=== PATIENT | male | born 1960 | race Hispanic/Latino ===

== ENCOUNTER → 2018-12-26 | Day surgery (SDC) | payer OTHER ==
[~2018-12-26] MED LIST: FENTANYL CITRATE/PF 100MCG/2 ML INJ ONE; HYDROCHLOROTHIA25 MG PO; LISINOPRIL10 MG PO; MIDAZOLAM HCL 2 MG/2 ML VIAL ONE; PROPOFOL IV EMULSION 10 MG/ML 50 ML VIAL ONE
--- OUTSIDE RECORDS SUMMARY | 2018-12-26 06:35 | XMS REPORT ---
Author Author Admin, [facility] Address Unknown Phone Unavailable Allergies, Adverse Reactions, Alerts Allergy Name Reaction Description Start Date Severity Status Provider No Known Allergies Vanesa Javier [employer] Conditions or Problems Problem Name Problem Code Onset Date Status Entry Date Provider Comment Standard Description Annotate Screening for endocrine disease V77.99 Active Domonique Norwood MD Screening for other and unspecified endocrine, nutritional, metabolic, and immunity disorders Std screening V74.5 Active Domonique Norwood MD Screening examination for venereal disease Other tear of medial meniscus, current injury, left knee, initial encounter 836.0 Active Catrina ARMSTRONG Tear of medial cartilage or meniscus of knee, current Popliteal cyst, left 727.51 Active Catrina ARMSTRONG Synovial cyst of popliteal space Hemorrhoids 455.6 Active Elba Esparza MD Unspecified hemorrhoids without mention of complication Knee pain, left, chronic 719.46 Active Elba Esparza MD Pain in joint involving lower leg Dyslipidemia 272.4 Active Royal Sim MD Other and unspecified hyperlipidemia Health maintenance V70.0 Active Royal Sim MD Routine general medical examination at a health care facility Hypertension 401.9 Active Royal Sim MD Unspecified essential hypertension MORBID OBESITY 278.01 Active Royal Sim MD Morbid obesity Medication List Medication Instructions Start Date Stop Date Generic Name NDC Status Provider Patient Instruction MOBIC 15 MG ORAL TABLET 1 by mouth daily MELOXICAM 37958088362 Active Domonique Norwood MD Active IBUPROFEN 600 MG ORAL TABLET 1 By Mouth Every 8 hours As Needed pain IBUPROFEN 42027989833 Active Kenny Mancini MD (res) Active PREPARATION H 0.25-50 % RECTAL GEL Apply as needed up to 4 times per day PHENYLEPHRINE-[place] 69721662785 Active Kenny Mancini MD (res) Active AMLODIPINE BESYLATE 10 MG ORAL TABLET 1 tab by mouth daily for blood pressure AMLODIPINE BESYLATE 44897561193 Active Domonique Norwood MD Active LISINOPRIL-HYDROCHLOROTHIAZIDE 20-25 MG ORAL TABLET Take 2 tab By Mouth daily LISINOPRIL-HYDROCHLOROTHIAZIDE 79891058045 Active Domonique Norwood MD Active Vital Signs Date Name Value Unit Range Description blood pressure, diastolic 87 mm[Hg] BP joseph blood pressure, systolic 142 mm[Hg] BP sys height E&M 65.50 [in_us] Bdy height pulse rate E&M 82 /min Heart rate respiratory rate E&M 21 /min Resp rate temperature E&M 98.8 [degF] Body temperature weight E&M 286.40 [lb_av] Weight Measured blood pressure, diastolic, second observation 89 mm[Hg] BP joseph blood pressure, diastolic 89 mm[Hg] BP joseph blood pressure, systolic, second observation 151 mm[Hg] BP sys blood pressure, systolic 151 mm[Hg] BP sys height E&M 65.50 [in_us] Bdy height pulse rate E&M 93 /min Heart rate pulse rate #2 85 Heart rate respiratory rate E&M 21 /min Resp rate temperature E&M 98.7 [degF] Body temperature weight E&M 275 [lb_av] Weight Measured blood pressure, diastolic 102 mm[Hg] BP joseph blood pressure, systolic 167 mm[Hg] BP sys height E&M 66 [in_us] Bdy height pulse rate E&M 104 /min Heart rate respiratory rate E&M 20 /min Resp rate temperature E&M 99.0 [degF] Body temperature weight E&M 292.20 [lb_av] Weight Measured Diagnostic Results Date Name Value Unit Range Description Lab Report: CBC With Differential/Platelet, Comp. Metabolic Panel (14), ... - Hematology basophils as percent of blood leukocytes 1 % Not Estab. Lab Report: CBC With Differential/Platelet, Comp. Metabolic Panel (14), ... - Chemistry calcium, serum 10.0 mg/dL 8.7-10.2 Lab Report: CBC With Differential/Platelet, Comp. Metabolic Panel (14), ... - Hematology lymphocyte count, blood, automated 2.1 X10E3/UL 10*3/mm3 0.7-3.1 Lab Report: CBC With Differential/Platelet, Comp. Metabolic Panel (14), ... - Chemistry urea nitrogen, blood 14 mg/dL 6-24 Lab Report: CBC With Differential/Platelet, Comp. Metabolic Panel (14), ... - Hematology monocyte count, blood, automated 0.5 X10E3/UL 10*3/uL 0.1-0.9 Lab Report: CBC With Differential/Platelet, Comp. Metabolic Panel (14), ... - Chemistry immature granulocytes, percentage of total cells, blood 0 % Not Estab. urea nitrogen/creatinine ratio, serum 14 9-20 Lab Report: CBC With Differential/Platelet, Comp. Metabolic Panel (14), ... - Genetics/fertility eGFR if 99 mL/min/1.73m2 >59 Lab Report: CBC With Differential/Platelet, Comp. Metabolic Panel (14), ... - Chemistry creatinine, serum 0.99 mg/dL 0.76-1.27 Lab Report: CBC With Differential/Platelet, Comp. Metabolic Panel (14), ... - Hematology mean corpuscular volume, RBC 87 fL 79-97 Lab Report: CBC With Differential/Platelet, Comp. Metabolic Panel (14), ... - Chemistry chloride, serum 95 mmol/L 96-106 Lab Report: CBC With Differential/Platelet, Comp. Metabolic Panel (14), ... - Hematology lymphocytes as percent of blood leukocytes 35 % Not Estab. Lab Report: CBC With Differential/Platelet, Comp. Metabolic Panel (14), ... - Chemistry triglyceride, serum, fasting 149 mg/dL 0-149 Lab Report: CBC With Differential/Platelet, Comp. Metabolic Panel (14), ... - Hematology erythrocyte (RBC) count 4.97 X10E6/UL 10*6/mm3 4.14-5.80 Lab Report: CBC With Differential/Platelet, Comp. Metabolic Panel (14), ... - Chemistry Estimated Glomerular Filtration Rate (calc) 85 mL/min/1.73m2 >59 Lab Report: CBC With Differential/Platelet, Comp. Metabolic Panel (14), ... - Hematology platelet count 306 X10E3/UL 10*3/mm3 425-259 7349/05/09 red blood cell distribution width 14.3 % 12.3-15.4 Lab Report: CBC With Differential/Platelet, Comp. Metabolic Panel (14), ... - Chemistry carbon dioxide, venous blood 28 mmol/L 18-29 Lab Report: CBC With Differential/Platelet, Comp. Metabolic Panel (14), ... - Serology rapid plasma reagin antibody, serum Non Reactive Non Reactive Lab Report: CBC With Differential/Platelet, Comp. Metabolic Panel (14), ... - Chemistry protein, total, serum 7.6 g/dL 6.0-8.5 sodium, serum 139 mmol/L 410-185 7173/05/09 HDL cholesterol, serum 47 mg/dL >39 hemoglobin A1C, blood, as % of total hemoglobin 5.4 % 4.8-5.6 Lab Report: CBC With Differential/Platelet, Comp. Metabolic Panel (14), ... - Hematology eosinophils as percent of blood leukocytes 5 % Not Estab. Lab Report: CBC With Differential/Platelet, Comp. Metabolic Panel (14), ... - Chemistry albumin/globulin ratio, serum 1.8 1.2-2.2 alkaline phosphatase, serum 55 U/L 39-117 Absolute Neutrophils 3.0 X10E3/UL 10*3/uL 1.4-7.0 Lab Report: CBC With Differential/Platelet, Comp. Metabolic Panel (14), ... - Hematology basophil count, absolute 0.1 x10E3/uL 0.0-0.2 Lab Report: CBC With Differential/Platelet, Comp. Metabolic Panel (14), ... - Chemistry alanine aminotransferase (SGPT), serum 40 U/L 0-44 Lab Report: CBC With Differential/Platelet, Comp. Metabolic Panel (14), ... - Hematology Eosinophil Absolute Count 0.3 X10E3/UL 10*3/uL 0.0-0.4 Lab Report: CBC With Differential/Platelet, Comp. Metabolic Panel (14), ... - Chemistry LDL cholesterol, serum 129 mg/dL 0-99 Lab Report: CBC With Differential/Platelet, Comp. Metabolic Panel (14), ... - Hematology monocytes as percent of blood leukocytes 8 % Not Estab. mean corpuscular hemoglobin, RBC 29.8 pg 26.6-33.0 Lab Report: CBC With Differential/Platelet, Comp. Metabolic Panel (14), ... - Chemistry cholesterol, serum 206 mg/dL 100-199 Lab Report: CBC With Differential/Platelet, Comp. Metabolic Panel (14), ... - Hematology mean corpuscular hemoglobin concentration, RBC 34.3 G/DL % 31.5-35.7 Lab Report: CBC With Differential/Platelet, Comp. Metabolic Panel (14), ... - Chemistry bilirubin, serum, total 0.4 mg/dL 0.0-1.2 Lab Report: CBC With Differential/Platelet, Comp. Metabolic Panel (14), ... - Hematology hemoglobin, blood 14.8 g/dL 13.0-17.7 neutrophils as percent of blood leukocytes 51 % Not Estab. leukocyte count, blood 6.1 X10E3/UL 10*3/mm3 3.4-10.8 hematocrit, blood 43.1 % 37.5-51.0 Lab Report: CBC With Differential/Platelet, Comp. Metabolic Panel (14), ... - Chemistry potassium, serum 3.8 mmol/L 3.5-5.2 blood glucose, random 98 mg/dL 65-99 globulin, serum 2.7 1.5-4.5 aspartate aminotransferase (SGOT), serum 25 U/L 0-40 albumin, serum 4.9 g/dL 3.5-5.5 very low density lipoproteins 30 mg/dL 5-40 Encounters Date Encounter Provider Code Facility 11:37:35 CDT Est Patient Detailed - [id number] Domonique Norwood MD CPT-08020 [facility] 18:36:42 CDT Est Patient Exp Problem - [id number] Domonique Norwood MD CPT-50969 [facility] 10:29:01 CDT Est Patient Exp Problem - [id number] Catrina Annamarie [facility] CPT-51251 [facility] 09:02:59 CDT Est Patient Detailed - [id number] Kenny Mancini MD (res) CPT-76670 [facility] 08:34:37 [employer] Est Patient Detailed - 58256 Royal Sim MD CPT-02924 [facility] 16:59:46 CDT New Patient Detailed - 34154 Royal Sim MD CPT-92069 [facility] Procedures Code Procedure Name Date Entry Date Standard Description CPT-28245 Aspiration / Injection - Major Joint / Bursa 11:37:35 CDT CPT-88619 Est Patient Well Exam (40 - 64 Yrs) - 61612 18:36:41 CDT
[2018-12-26 09:17] VITALS: BP 141/90
== END | disposition home or self-care (01) ==
LOC: OR 06:31
PROVIDERS: ATTEND Internal Medicine Gastroenterology
DX: Z12.11 Encounter for screening for malignant neoplasm of colon (principal); Z71.3 Dietary counseling and surveillance; I10 Essential (primary) hypertension; E66.01 Morbid (severe) obesity due to excess calories; K57.30 Diverticulosis of large intestine without perforation or abscess without bleeding; K64.8 Other hemorrhoids; M79.605 Pain in left leg; Z01.810 Encounter for preprocedural cardiovascular examination; Z68.42 Body mass index [BMI] 45.0-49.9, adult
CPT/HCPCS: 45378; 93005; J2250

== ENCOUNTER → 2019-02-12 | Day surgery (SDC) | payer OTHER ==
[2019-02-10 09:17] LABS: ANION GAP 11.1 mmol/L (8-16); BLOOD UREA NITROGEN 10 mg/dL (7-26); BUN/CREATININE RATIO 12 (6-25); CARBON DIOXIDE 30 mmol/L (22-29); CHLORIDE 99 mmol/L (98-107); CREATININE, SERUM 0.84 mg/dL (0.72-1.25); EST GLOMERULAR FILTRATION RATE > 60 ML/MIN (60-); GLUCOSE 131 mg/dL (74-118); POTASSIUM 3.1 mmol/L (3.5-5.1); SODIUM 137 mmol/L (136-145)
[~2019-02-12] MED LIST changes: +ACETAMINOPHEN 1000 MG/100 ML IV ONE; +ACETAMINOPHEN/CODEINE 300MG - 30MG TAB ONE; +AMLODIPINE BESYL5 MG PO; +ATORVASTATIN CA10 MG PO; +BACLOFEN10 MG PO; +BUPIVACAINE 0.5%/EPI 30 ML SDV INJ ONE; +CEFAZOLIN SOD 2 GM/D5W 50ML 50 ML IV ONE; +DEXAMETHASONE SOD PHOS INJ 4 MG/ML VIAL ONE; +EPHEDRINE SULFATE INJ 50 MG/10 ML SYR ONE; +LIDOCAINE HCL 2% LOCAL INJ 5 ML SDV VIAL INJ ONE; +LISINOPRIL-HCT1 EAC1 PO; +ONDANSETRON HCL INJ 2MG/ML 2ML 2 MG/ML VIAL ONE; +PROMETHAZINE HCL (IM) 25 MG/ML VIAL ONE; +PROPOFOL IV EMULSION 10 MG/ML 20 ML VIAL ONE; -PROPOFOL IV EMULSION 10 MG/ML 50 ML VIAL ONE; +SEVOFLURANE INHAL SOLN 250 ML PEN BTL ONE
[2019-02-12 10:00] VITALS: BP 119/71
--- NOTE | 2019-02-12 23:38 | Operative Report ---
DATE OF PROCEDURE: 02/12/2019 SURGEON: Parish Ramos MD PREOPERATIVE DIAGNOSIS: Left knee medial meniscus tear and left knee degenerative joint disease of the knee. POSTOPERATIVE DIAGNOSIS: Left knee medial meniscus tear and left knee degenerative joint disease of the knee. OPERATION/PROCEDURE PERFORMED: The patient underwent a left knee examination under anesthesia, left knee arthroscopy, left knee partial medial meniscectomy, left knee chondroplasty of the patella, the trochlea and medial femoral condyle, the medial tibial plateau, lateral femoral condyle, and lateral tibial plateau. [employer] SITE CONSTRUCTION SUPERINTENDENT: Haley Carr ANESTHESIA: General endotracheal anesthesia. IV FLUIDS: See anesthesia record. BRIEF DISCUSSION OF THE PATIENT'S OPERATIVE PROCEDURE: The patient was taken to the operating room, placed in supine position on the operating table. Following induction of general anesthesia as well as endotracheal intubation, the patient's left lower extremity was examined under anesthesia. He was found to have a mild effusion within the joint, but otherwise ligamentously stable knee. The patient's lower extremity was prepped and draped in standard surgical fashion. A 2-port technique was used to provide this patient arthroscopic evaluation of the knee joint. Examination of suprapatellar pouch and medial lateral gutters found no evidence of loose bodies. There was, however, evidence of chondromalacia of the patella and trochlear surfaces. The scope was advanced in the medial compartment. Examination of the medial compartment demonstrated a torn medial meniscus. There was also chondromalacia of the articulating surfaces. A combination of biting forceps and a motorized shaver used to resect the torn portion of meniscus. Chondroplasties of the medial femoral condyle and medial tibial plateau were performed at this time. The scope was then advanced into the intercondylar notch the anterior cruciate ligament was identified and found to be intact. The scope was then advanced into the lateral compartment and chondromalacia articulating surfaces were encountered. There was no evidence of a lateral meniscus tear. Chondroplasties of the lateral femoral condyle and lateral plateau. Scope was then placed in suprapatellar pouch and chondroplasties of the patella and trochlea were performed. The knee was deflated in sterile normal saline. The portal sites were closed using 4-0 nylon suture. The portal sites were then injected with 0.5% Marcaine with epinephrine. Sterile dressings were applied. The patient was then awakened and taken to postanesthesia care in stable condition. MD AMANDA Gunderson/NIGEL /[id number]
== END | disposition home or self-care (01) ==
LOC: OR 05:29
PROVIDERS: ATTEND Specialist
DX: S83.222A Peripheral tear of medial meniscus, current injury, left knee, initial encounter (principal); M17.12 Unilateral primary osteoarthritis, left knee; M70.52 Other bursitis of knee, left knee; M22.42 Chondromalacia patellae, left knee; M16.0 Bilateral primary osteoarthritis of hip; I10 Essential (primary) hypertension; E78.5 Hyperlipidemia, unspecified; E66.01 Morbid (severe) obesity due to excess calories; X58.XXXA Exposure to other specified factors, initial encounter; Z01.812 Encounter for preprocedural laboratory examination; Z68.42 Body mass index [BMI] 45.0-49.9, adult
CPT/HCPCS: 36415; 80048; 84132; J0690; J1100; J2001; J2250; J2405; J2550